=== PATIENT | female | born 1945 | race Caucasian/White ===

== ENCOUNTER 2017-04-14 16:18 | Outpatient (CLI) | payer BC | END 2017-04-14 16:19 | disposition home or self-care (01) | LOC: BICMAMMO 16:18 | PROVIDERS: ATTEND Obstetrics & Gynecology | DX: Z12.31 Encounter for screening mammogram for malignant neoplasm of breast (principal) | CPT/HCPCS: 77063; 77067 ==

== ENCOUNTER 2018-04-20 14:58 | Outpatient (CLI) | payer BC | END 2018-04-20 14:59 | disposition home or self-care (01) | LOC: BICMAMMO 14:58 | PROVIDERS: ATTEND Obstetrics & Gynecology | DX: Z12.31 Encounter for screening mammogram for malignant neoplasm of breast (principal) | CPT/HCPCS: 77063; 77067 ==

== ENCOUNTER 2019-05-03 13:34 | Outpatient (CLI) | payer BC ==
--- NOTE | 2019-05-03 16:06 | MMO ---
Bilateral MAMMO Bilat Screen [id number]. CLINICAL HISTORY: Patient is 73 years old and is seen for screening. The patient has no family history of breast cancer. The patient has no personal history of cancer. VIEWS: The views performed were: bilateral craniocaudal with tomosynthesis and bilateral mediolateral oblique with tomosynthesis. FILMS COMPARED: The present examination has been compared to prior imaging studies performed at [facility] on 04/14/2017 and 04/20/2018, and at [facility] on 01/19/2015 and 02/12/2016. This study has been interpreted with the assistance of computer-aided detection. MAMMOGRAM FINDINGS: There are scattered fibroglandular densities. There is a stable oval mass with associated benign appearing calcifications seen in the left breast. There are no suspicious masses, suspicious calcifications, or new areas of architectural distortion. IMPRESSION: THERE IS NO MAMMOGRAPHIC EVIDENCE OF MALIGNANCY. A ROUTINE FOLLOW-UP MAMMOGRAM IN 1 YEAR IS RECOMMENDED. THE RESULTS OF THIS EXAM WERE SENT TO THE PATIENT. ACR BI-RADS Category 2 - Benign finding MAMMOGRAPHY NOTE: 1. A negative mammogram report should not delay a biopsy if a dominant of clinically suspicious mass is present. 2. Approximately 10% to 15% of breast cancers are not detected by mammography. 3. Adenosis and dense breasts may obscure an underlying neoplasm. Reported by: AMADO DEMARCO MD Electonically Signed: [id number]
== END 2019-05-03 13:35 | disposition home or self-care (01) ==
LOC: BICMAMMO 13:34
PROVIDERS: ATTEND Family Medicine
DX: Z12.31 Encounter for screening mammogram for malignant neoplasm of breast (principal)
CPT/HCPCS: 77063; 77067

== ENCOUNTER 2021-07-13 12:07 | Outpatient (CLI) | payer MEDICARE | END 2021-07-13 12:08 | disposition home or self-care (01) | LOC: BICMAMMO 12:07 | PROVIDERS: ATTEND Family Medicine | DX: Z12.31 Encounter for screening mammogram for malignant neoplasm of breast (principal) | CPT/HCPCS: 77063; 77067 ==

== ENCOUNTER 2021-12-09 13:59 | Outpatient (CLI) | payer MEDICARE ==
[2021-12-09 18:34] LABS: #Eosinphils 0.2 10x3/uL (0.0-0.5); #Monocytes 0.6 10x3/uL (0.0-1.1); #Neutrophils 4.9 10x3/uL (1.5-8.4); %Basophils 0.5 % (0.0-2.0); %Eosinophils 2.2 % (0.0-6.0); %Lymphocytes 24.7 % (18.0-47.0); %Neutrophils 64.3 % (40.0-75.0); Hemoglobin 13.4 g/dL (12.0-15.5); Mean Corpuscular HGB CONC 34.2 g/dL (32.0-36.0); Mean Corpuscular Hemoglobin 30.4 pg (27.0-33.0); Mean Corpuscular Volume 88.9 fl (81.6-98.3); Mean Platelet Volume 12.5 fl (7.4-10.4); Platelet Count 167 10x3/uL (150-450); RBC Distribution Width 15.8 % (11.5-14.5); Red Blood Cell (RBC) Count 4.41 10x6/uL (3.90-5.03); White Blood Cell (WBC) Count 7.6 10x3/uL (3.5-10.5)
[2021-12-09 18:43] LABS: Prothrombin Time 10.4 sec (9.5-12.1)
[2021-12-09 18:44] LABS: Anion Gap 15 mmol/L (10-20); BUN (Urea Nitrogen) 17 mg/dL (9.8-20.1); Calc. Creatinine Clearance 0 mL/min (70-130); Calcium 9.8 mg/dL (7.8-10.44); Carbon Dioxide 23 mmol/L (23-31); Chloride 103 mmol/L (98-107); Estimated GFR 52; Glucose 194 mg/dL (83-110); Potassium 4.2 mmol/L (3.5-5.1); Sodium 137 mmol/L (136-145)
== END 2021-12-09 14:00 | disposition home or self-care (01) ==
LOC: LABBT 13:59
PROVIDERS: ATTEND Orthopaedic Surgery
DX: Z01.818 Encounter for other preprocedural examination (principal); M17.11 Unilateral primary osteoarthritis, right knee; Z20.822 Contact with and (suspected) exposure to COVID-19
CPT/HCPCS: 80048; 85025; 85610; 87081; 87811; 93005; 93010

== ENCOUNTER 2021-12-14 05:35 | Inpatient (IN) | payer MEDICARE ==
[2021-12-09 10:09] VITALS: BMI 22.1
[2021-12-14] MEDS ORDERED: Vancomycin 1 GM/200 ML BAG ONE (05:57)
[2021-12-14] MEDS ORDERED: Tranexamic Acid 1,000 MG/10 ML VIAL ONE (05:57)
[2021-12-14] MEDS ORDERED: Sodium Chloride 0.9% 100 ML ONE ×2 (05:57→06:55)
[2021-12-14] MEDS ORDERED: fentaNYL Citrate/PF 100 MCG/2 ML SYRINGE ONE (06:15)
[2021-12-14] MEDS ORDERED: Bupivacaine PF 0.5% 30 ML VIAL ONE (06:46)
[2021-12-14] MEDS ORDERED: Ondansetron PF 4 MG/2 ML Vial IVP PRN (06:46)
[2021-12-14] MEDS ORDERED: HYDROcodone/Acetaminophen 10/325 mg Tablet PO PRN ×4 (06:46→08:45)
[2021-12-14] MEDS ORDERED: Promethazine HCl 25 MG/ML VIAL IM PRN ×3 (06:46→08:45)
[2021-12-14] MEDS ORDERED: Zolpidem Tartrate 5 MG TAB PO PRN ×2 (06:46→08:45)
[2021-12-14] MEDS ORDERED: CEFAZOLIN 2 GM VIAL ONE (06:55)
[2021-12-14] MEDS ORDERED: Ketorolac Tromethamine 30 MG/ML VIAL ONE (07:18)
[2021-12-14] MEDS ORDERED: Lidocaine 1% MPF 2 ML VIAL ONE (07:18)
[2021-12-14] MEDS ORDERED: Dexamethasone 20 MG/5 ML VIAL ONE (07:18)
[2021-12-14] MEDS ORDERED: ePHEDrine 50 MG/ML VIAL ONE (07:18)
[2021-12-14] MEDS ORDERED: Ondansetron PF 4 MG/2 ML Vial ONE (07:18)
[2021-12-14] MEDS ORDERED: PROPOFOL 200 MG/20 ML VIAL ONE (07:18)
[2021-12-14] MEDS ORDERED: Ropivacaine 0.5% HCl/PF (150 MG/30 ML VIAL) ONE (07:18)
[2021-12-14] MEDS ORDERED: Ondansetron HCl/PF 4 MG/2 ML Vial IVP PRN (08:35)
[2021-12-14] MEDS ORDERED: Promethazine HCl 25 MG/ML VIAL IVPB PRN (08:35)
[2021-12-14] MEDS ORDERED: Fentanyl 100 MCG/2 ML VIAL IV PRN (08:41)
[2021-12-14] MEDS ORDERED: Ropivacaine 0.2% 550 ML 550 ML NERVE BLCK SCH (08:45)
[2021-12-14] MEDS ORDERED: Non-Formulary Item 1 EACH (Esomeprazole Magnesium [Nexium] 20 MG Capsule.Dr) PO SCH (09:00)
[2021-12-14] MEDS: Ondansetron PF 4 MG/2 ML Vial IVP PRN (10:21)
[2021-12-14] MEDS: Sodium Chloride 0.9% 1,000 ML IV SCH ×2 (10:48→17:49)
[2021-12-14] MEDS: Aspirin 81 mg Enteric Coated Tablet PO SCH ×2 (10:50→20:55)
[2021-12-14] MEDS: Atenolol 50 MG TAB PO SCH (10:50)
[2021-12-14] MEDS: Ferrous Gluconate 324 MG TAB PO SCH ×2 (10:52→20:54)
[2021-12-14] MEDS: Levothyroxine Sodium 100 MCG TAB PO SCH (10:53)
[2021-12-14] MEDS: Senokot S 8.6-50 MG TAB PO SCH ×2 (10:55→20:55)
[2021-12-14] MEDS: Multivitamin W/ Minerals 1 TAB PO SCH (10:55)
[2021-12-14] MEDS: Triamterene/Hydrochlorothiazide 37.5 mg/25 mg Tablet PO SCH (10:56)
[2021-12-14] MEDS ORDERED: Ketorolac Tromethamine 30 MG/ML VIAL IVP SCH (14:00)
[2021-12-14] MEDS: CEFAZOLIN 2 GM in Sodium Chloride 0.9% 100 ML IVPB SCH ×2 (14:15→21:20)
[2021-12-14] MEDS: Atorvastatin Calcium 10 MG TAB PO SCH (20:54)
[2021-12-14] MEDS ORDERED: Pravastatin Sodium 40 MG TAB PO SCH (21:00)
[2021-12-15] MEDS: Sodium Chloride 0.9% 1,000 ML IV SCH ×2 (02:43→12:54)
[2021-12-15 05:47] LABS: Mean Corpuscular Hemoglobin 31.4 pg (27.0-31.0); Mean Corpuscular Volume 92.3 fL (78.0-98.0); Mean Platelet Volume 8.7 fL (7.4-10.4); Platelet Count 129 thou/uL (130-400); White Blood Cell (WBC) Count 9.7 thou/uL (4.8-10.8)
[2021-12-15] MEDS: Ondansetron PF 4 MG/2 ML Vial IVP PRN (08:07)
[2021-12-15] MEDS: Ferrous Gluconate 324 MG TAB PO SCH ×2 (09:01→20:52)
[2021-12-15] MEDS: Atenolol 50 MG TAB PO SCH (09:02)
[2021-12-15] MEDS: Triamterene/Hydrochlorothiazide 37.5 mg/25 mg Tablet PO SCH (09:02)
[2021-12-15] MEDS: Multivitamin W/ Minerals 1 TAB PO SCH (09:02)
[2021-12-15] MEDS: Senokot S 8.6-50 MG TAB PO SCH ×2 (09:02→20:52)
[2021-12-15] MEDS: Aspirin 81 mg Enteric Coated Tablet PO SCH (09:03)
[2021-12-15] MEDS: Levothyroxine Sodium 100 MCG TAB PO SCH (09:03)
[2021-12-15] MEDS: Acetaminophen 325 MG TAB PO PRN ×2 (16:00→20:53)
[2021-12-15] MEDS: Atorvastatin Calcium 10 MG TAB PO SCH (20:52)
[2021-12-16] MEDS: Sodium Chloride 0.9% 1,000 ML IV SCH ×3 (00:06→20:48)
[2021-12-16] MEDS: Acetaminophen 325 MG TAB PO PRN ×2 (04:16→19:34)
[2021-12-16] MEDS: Ferrous Gluconate 324 MG TAB PO SCH ×2 (09:05→20:50)
[2021-12-16] MEDS: Triamterene/Hydrochlorothiazide 37.5 mg/25 mg Tablet PO SCH (09:06)
[2021-12-16] MEDS: Levothyroxine Sodium 100 MCG TAB PO SCH (09:06)
[2021-12-16] MEDS: Multivitamin W/ Minerals 1 TAB PO SCH (09:06)
[2021-12-16] MEDS: Aspirin 81 mg Enteric Coated Tablet PO SCH (09:06)
[2021-12-16] MEDS: Senokot S 8.6-50 MG TAB PO SCH ×2 (09:07→20:50)
[2021-12-16] MEDS: Atenolol 50 MG TAB PO SCH (09:11)
[2021-12-16] MEDS: Ondansetron PF 4 MG/2 ML Vial IVP PRN (19:34)
[2021-12-16] MEDS: Atorvastatin Calcium 10 MG TAB PO SCH (20:50)
[2021-12-17] MEDS: Sodium Chloride 0.9% 1,000 ML IV SCH ×2 (06:43→16:27)
[2021-12-17] MEDS: Ondansetron ODT 4 MG TAB PO PRN ×3 (08:43→20:58)
[2021-12-17] MEDS: Atenolol 50 MG TAB PO SCH (09:15)
[2021-12-17] MEDS: Levothyroxine Sodium 100 MCG TAB PO SCH (09:15)
[2021-12-17] MEDS: traMADol HCl 50 MG TAB PO PRN ×3 (09:16→21:28)
[2021-12-17] MEDS: Ferrous Gluconate 324 MG TAB PO SCH ×2 (09:17→20:59)
[2021-12-17] MEDS: Multivitamin W/ Minerals 1 TAB PO SCH (09:17)
[2021-12-17] MEDS: Aspirin 81 mg Enteric Coated Tablet PO SCH ×2 (09:18→20:59)
[2021-12-17] MEDS: Acetaminophen 325 MG TAB PO PRN ×3 (09:18→21:27)
[2021-12-17] MEDS: Senokot S 8.6-50 MG TAB PO SCH ×2 (09:29→20:59)
[2021-12-17] MEDS: Triamterene/Hydrochlorothiazide 37.5 mg/25 mg Tablet PO SCH ×3 (09:29→16:26)
[2021-12-17] MEDS: Atorvastatin Calcium 10 MG TAB PO SCH (20:59)
[2021-12-18] MEDS: Sodium Chloride 0.9% 1,000 ML IV SCH ×3 (00:12→21:33)
[2021-12-18] MEDS: Ondansetron ODT 4 MG TAB PO PRN ×2 (08:01→19:55)
[2021-12-18] MEDS: Levothyroxine Sodium 100 MCG TAB PO SCH (08:32)
[2021-12-18] MEDS: Atenolol 50 MG TAB PO SCH (08:33)
[2021-12-18] MEDS: Aspirin 81 mg Enteric Coated Tablet PO SCH ×2 (08:33→20:22)
[2021-12-18] MEDS: Triamterene/Hydrochlorothiazide 37.5 mg/25 mg Tablet PO SCH (08:33)
[2021-12-18] MEDS: Ferrous Gluconate 324 MG TAB PO SCH ×2 (08:33→20:23)
[2021-12-18] MEDS: Multivitamin W/ Minerals 1 TAB PO SCH (08:33)
[2021-12-18] MEDS: Senokot S 8.6-50 MG TAB PO SCH ×2 (08:34→20:23)
[2021-12-18] MEDS: traMADol HCl 50 MG TAB PO PRN ×2 (08:36→20:23)
[2021-12-18] MEDS: diphenhydrAMINE 25 MG CAP PO PRN (20:22)
[2021-12-18] MEDS: Acetaminophen 325 MG TAB PO PRN (20:22)
[2021-12-18] MEDS: Atorvastatin Calcium 10 MG TAB PO SCH (20:23)
[2021-12-19] MEDS: Sodium Chloride 0.9% 1,000 ML IV SCH ×2 (07:18→13:54)
[2021-12-19] MEDS: Ondansetron ODT 4 MG TAB PO PRN ×2 (08:03→17:23)
[2021-12-19] MEDS: Triamterene/Hydrochlorothiazide 37.5 mg/25 mg Tablet PO SCH (08:42)
[2021-12-19] MEDS: Atenolol 50 MG TAB PO SCH (08:42)
[2021-12-19] MEDS: Levothyroxine Sodium 100 MCG TAB PO SCH (08:42)
[2021-12-19] MEDS: Aspirin 81 mg Enteric Coated Tablet PO SCH ×2 (08:42→21:10)
[2021-12-19] MEDS: Ferrous Gluconate 324 MG TAB PO SCH ×2 (08:42→21:10)
[2021-12-19] MEDS: traMADol HCl 50 MG TAB PO PRN ×2 (08:43→17:49)
[2021-12-19] MEDS: Multivitamin W/ Minerals 1 TAB PO SCH (08:43)
[2021-12-19] MEDS: Senokot S 8.6-50 MG TAB PO SCH ×2 (08:45→21:10)
[2021-12-19] MEDS: Atorvastatin Calcium 10 MG TAB PO SCH (21:09)
[2021-12-19] MEDS: diphenhydrAMINE 25 MG CAP PO PRN (21:09)
[2021-12-19] MEDS: Acetaminophen 325 MG TAB PO PRN (21:09)
[2021-12-20] MEDS: Sodium Chloride 0.9% 1,000 ML IV SCH ×3 (02:59→23:04)
[2021-12-20] MEDS: Aspirin 81 mg Enteric Coated Tablet PO SCH ×2 (09:35→20:32)
[2021-12-20] MEDS: Atenolol 50 MG TAB PO SCH (09:35)
[2021-12-20] MEDS: Ferrous Gluconate 324 MG TAB PO SCH ×2 (09:36→20:31)
[2021-12-20] MEDS: Levothyroxine Sodium 100 MCG TAB PO SCH (09:36)
[2021-12-20] MEDS: Triamterene/Hydrochlorothiazide 37.5 mg/25 mg Tablet PO SCH (09:37)
[2021-12-20] MEDS: Senokot S 8.6-50 MG TAB PO SCH ×3 (09:37→20:33)
[2021-12-20] MEDS: Multivitamin W/ Minerals 1 TAB PO SCH (09:37)
[2021-12-20] MEDS: Acetaminophen 325 MG TAB PO PRN ×2 (11:30→20:30)
[2021-12-20] MEDS: traMADol HCl 50 MG TAB PO PRN (20:31)
[2021-12-20] MEDS: Atorvastatin Calcium 10 MG TAB PO SCH (20:31)
[2021-12-21] MEDS: Aspirin 81 mg Enteric Coated Tablet PO SCH ×2 (09:54→20:56)
[2021-12-21] MEDS: Atenolol 50 MG TAB PO SCH (09:54)
[2021-12-21] MEDS: Senokot S 8.6-50 MG TAB PO SCH ×2 (09:55→20:56)
[2021-12-21] MEDS: Multivitamin W/ Minerals 1 TAB PO SCH (09:55)
[2021-12-21] MEDS: Triamterene/Hydrochlorothiazide 37.5 mg/25 mg Tablet PO SCH (09:55)
[2021-12-21] MEDS: Ferrous Gluconate 324 MG TAB PO SCH ×2 (09:55→20:56)
[2021-12-21] MEDS: Levothyroxine Sodium 100 MCG TAB PO SCH (09:55)
[2021-12-21] MEDS: Sodium Chloride 0.9% 1,000 ML IV SCH ×2 (09:56→19:00)
[2021-12-21] MEDS: Ondansetron ODT 4 MG TAB PO PRN (19:47)
[2021-12-21] MEDS: traMADol HCl 50 MG TAB PO PRN (20:56)
[2021-12-21] MEDS: Atorvastatin Calcium 10 MG TAB PO SCH (20:56)
[2021-12-22] MEDS: Sodium Chloride 0.9% 1,000 ML IV SCH (05:00)
[2021-12-22 08:19] VITALS: BP 134/71; TEMP 98.3
== END 2021-12-22 08:45 | disposition home health service (06) | DRG 470 ==
LOC: SDC 05:35 → SURG B 06:46 → SDC 15:16 → OBSVTOIN 12-15 10:41
PROVIDERS: ADMIT Orthopaedic Surgery; ATTEND Orthopaedic Surgery
PROC: 0SRC0J9 Replacement of Right Knee Joint with Synthetic Substitute, Cemented, Open Approach (ICD-10-PCS; principal; 2021-12-14)
DX: M17.11 Unilateral primary osteoarthritis, right knee (principal); M65.332 Trigger finger, left middle finger; H91.90 Unspecified hearing loss, unspecified ear; E78.00 Pure hypercholesterolemia, unspecified; K21.9 Gastro-esophageal reflux disease without esophagitis; F32.A Depression, unspecified; I25.10 Atherosclerotic heart disease of native coronary artery without angina pectoris; I10 Essential (primary) hypertension; Z86.73 Personal history of transient ischemic attack (TIA), and cerebral infarction without residual deficits; Z90.49 Acquired absence of other specified parts of digestive tract; Z90.721 Acquired absence of ovaries, unilateral; Z82.3 Family history of stroke; Z82.49 Family history of ischemic heart disease and other diseases of the circulatory system; Z82.2 Family history of deafness and hearing loss; Z79.899 Other long term (current) drug therapy
CPT/HCPCS: 36415; 85027; 96374; 96375; 96376; A4306; C1713; C1776; G0378; J0690; J1100; J1885; J2405; J2704; J2795; J3370; J3490; Q0162; S0020

== ENCOUNTER 2022-08-03 14:33 | Outpatient (CLI) | payer MEDICARE | END 2022-08-03 14:34 | disposition home or self-care (01) | LOC: BICMAMMO 14:33 | PROVIDERS: ATTEND Family Medicine | DX: Z12.31 Encounter for screening mammogram for malignant neoplasm of breast (principal) | CPT/HCPCS: 77063; 77067 ==

== ENCOUNTER 2023-09-26 10:01 | Outpatient (CLI) | payer MEDICARE | END 2023-09-26 10:02 | disposition home or self-care (01) | LOC: BICMAMMO 10:01 | PROVIDERS: ATTEND Family Medicine | DX: Z12.31 Encounter for screening mammogram for malignant neoplasm of breast (principal) | CPT/HCPCS: 77063; 77067 ==